=== PATIENT | male | born 1980 | race American Indian/Alaskan Native ===

== ENCOUNTER 2019-05-28 17:36 | Emergency (ER) | payer SELFPAY ==
[2019-05-28 17:43] VITALS: BP 146/81
--- NOTE | 2019-05-28 19:23 | XRay Report ---
RIGHT HAND 3 VIEWS INDICATION / CLINICAL INFORMATION: Right hand injury COMPARISON: None available. FINDINGS: BONES / JOINT(S): There is a boxer's type fracture of the fifth metacarpal. No other fractures are se en. No significant arthritis. SOFT TISSUES: No significant abnormality. ADDITIONAL FINDINGS: None. Signer Name: Capo Ac MD Signed: 05/28/2019 7:19 PM Workstation Name: [id number]
--- NOTE | 2019-05-28 20:44 | Emergency Department Report ---
ED Extremity Problem HPI - General Chief complaint: Extremity Injury, Upper Stated complaint: RT HAND KNUCKLE DISLOCATED Time Seen by Provider: 05/28/19 20:38 Source: patient Mode of arrival: Ambulatory Limitations: No Limitations - History of Present Illness Initial comments: 38-year-old -Irish male patient complains of right hand pain after punching a dresser today. He denies any numbness/tingling/weakness in his hand. He rates his pain as a 10/10 in severity. MD Complaint: joint paint -: Sudden Location: right Severity scale (0 -10): 7 Quality: aching, constant Consistency: constant Improves with: immobilization Associated Symptoms: denies other symptoms - Related Data Previous Rx's Medication Instructions Recorded Last Taken Type Acetaminophen/Codeine [Tylenol 1 tab PO Q8H PRN #6 tab 05/28/19 Unknown Rx /Codeine # 3 tab] Ibuprofen [Motrin 800 MG tab] 800 mg PO Q8HR PRN #21 tablet 05/28/19 Unknown Rx Allergies Allergy/AdvReac Type Severity Reaction Status Date / Time No Known Allergies Allergy Unverified 05/28/19 17:45 ED Review of Systems ROS: Stated complaint: RT HAND KNUCKLE DISLOCATED Other details as noted in HPI Musculoskeletal: joint swelling, arthralgia Neurological: denies: numbness, paresthesias ED Past Medical Hx - Past Medical History Previous Medical History?: No - Surgical History Past Surgical History?: No - Social History Smoking Status: Current Every Day Smoker Substance Use Type: Alcohol - Medications Home Medications: Home Medications Medication Instructions Recorded Confirmed Last Taken Type Acetaminophen/Codeine [Tylenol 1 tab PO Q8H PRN #6 tab 05/28/19 Unknown Rx /Codeine # 3 tab] Ibuprofen [Motrin 800 MG tab] 800 mg PO Q8HR PRN #21 tablet 05/28/19 Unknown Rx ED Physical Exam - General Limitations: No Limitations General appearance: alert, in no apparent distress - Head Head exam: Present: atraumatic, normocephalic - Eye Eye exam: Present: normal appearance - Neck Neck exam: Present: full ROM - Respiratory Respiratory exam: Absent: respiratory distress - Cardiovascular Cardiovascular Exam: Present: regular rate - Expanded Upper Extremity Exam Right Hand Wrist exam: Present: full ROM, tenderness, swelling (Swelling and tenderness noted over the right fifth metacarpal bone. Normal range of motion, sensation, and perfusion of little finger noted.). Absent: erythema Vascular: Absent: vascular compromise - Neurological Exam Neurological exam: Present: alert, oriented X3 - Psychiatric Psychiatric exam: Present: normal affect, normal mood - Skin Skin exam: Present: warm, dry, intact, normal color. Absent: rash ED Course Vital Signs 05/28/19 17:41 Temperature 98.3 F Pulse Rate 99 H Respiratory 16 Rate Blood Pressure 146/81 [Right] O2 Sat by Pulse 97 Oximetry ED Medical Decision Making - Radiology Data Radiology results: report reviewed RIGHT HAND 3 VIEWS INDICATION / CLINICAL INFORMATION: Right hand injury COMPARISON: None available. FINDINGS: BONES / JOINT(S): There is a boxer's type fracture of the fifth metacarpal. No other fractures are seen. No significant arthritis. SOFT TISSUES: No significant abnormality. ADDITIONAL FINDINGS: None. - Medical Decision Making Patient here with right hand pain after punching a dresser today. X-ray shows boxer's fracture. Ulnar gutter splint placed. Patient has normal perfusion post splinting. Patient informed to follow-up with orthopedics for further evaluation and treatment within 3 days.. Discussed signs and symptoms that should prompt immediate return to the emergency department in detail with patient who verbalizes understanding. Critical care attestation.: If time is entered above; I have spent that time in minutes in the direct care of this critically ill patient, excluding procedure time. ED Disposition Clinical Impression: Boxers fracture Qualifiers: Encounter type: initial encounter Fracture type: closed Qualified Code(s): S62.339A - Displaced fracture of neck of unspecified metacarpal bone, initial encounter for closed fracture Disposition: - TO HOME OR SELFCARE Is pt being admited?: No Condition: Stable Instructions: Boxer Fracture (ED) Prescriptions: Ibuprofen [Motrin 800 MG tab] 800 mg PO Q8HR PRN #21 tablet PRN Reason: pain Acetaminophen/Codeine [Tylenol /Codeine # 3 tab] 1 tab PO Q8H PRN #6 tab PRN Reason: Pain , Severe (7-10) Referrals: SHONA REAL MD [Staff Physician] - 2-3 Days
[2019-05-28] MEDS ORDERED: IBUPROFEN 800 MG TAB PO ONE (20:51)
== END 2019-05-28 21:15 | disposition home or self-care (01) ==
LOC: ED 17:36
DX: S62.339A Displaced fracture of neck of unspecified metacarpal bone, initial encounter for closed fracture (principal); F17.200 Nicotine dependence, unspecified, uncomplicated; X58.XXXA Exposure to other specified factors, initial encounter; Y93.89 Activity, other specified; Y92.89 Other specified places as the place of occurrence of the external cause; Y99.8 Other external cause status